=== PATIENT | male | born 1960 | race Two or more races ===

== ENCOUNTER 2016-08-09 20:06 | Emergency (ER) | payer OTHER | END 2016-08-09 20:42 | disposition home or self-care (01) | LOC: SED 20:06 | DX: S61.211A Laceration without foreign body of left index finger without damage to nail, initial encounter (principal); Z88.0 Allergy status to penicillin; Z23 Encounter for immunization; W26.9XXA Contact with unspecified sharp object(s), initial encounter; Y92.096 Garden or yard of other non-institutional residence as the place of occurrence of the external cause | CPT/HCPCS: 12001; 90471; 90715; 99283 ==

== ENCOUNTER 2016-08-18 17:38 | Emergency (ER) | payer OTHER | END 2016-08-18 17:51 | disposition home or self-care (01) | LOC: SED 17:38 | DX: S61.211D Laceration without foreign body of left index finger without damage to nail, subsequent encounter (principal); Z88.0 Allergy status to penicillin; Z88.1 Allergy status to other antibiotic agents | CPT/HCPCS: 99281 ==